=== PATIENT | male | born 1990 | race Caucasian/White ===

== ENCOUNTER 2017-12-01 16:45 | Emergency (ER) | payer OTHER ==
[~2017-12-01] VITALS: Ht 180.3 cm; Wt 84.4 kg
[~2017-12-01 16:45] MED LIST: NYSTATIN100000 UN1 ORAL
[2017-12-01 17:13] VITALS: BP 115/71
[2017-12-01] MEDS ORDERED: Azithromycin 250mg tab ORAL ONE (17:30)
[2017-12-01] MEDS ORDERED: Lidocaine 1% MPF 10mg/ml 5ml INJ ONE (17:30)
--- NOTE | 2017-12-01 18:21 | Emergency Room Report ---
History of Present Illness General Chief Complaint: Male Urogenital Problems Source: Patient Present Illness HPI Patient presents with complaints of right-sided testicular pain Reports of the pain started yesterday Off-and-on Patient is sexually active with his boyfriend Usually uses condoms Denies any chest pain or shortness of breath and eyes any fevers denies any pain in the inguinal area Denies any neck pain or photophobia Allergies: Coded Allergies: NO KNOWN ALLERGIES (Verified Allergy, Unknown, 03/04/15) Patient History Past Medical History: see triage record Pertinent Family History: none Reviewed Nursing Documentation: PMH: Agreed; PSxH: Agreed Nursing Documentation-PMH Past Medical History: No Stated History Review of Systems All Other Systems: negative except mentioned in HPI Physical Exam Vital Signs Date Time Temp Pulse Resp B/P (MAP) Pulse Ox O2 Delivery O2 Flow Rate FiO2 12/01/17 17:02 98.6 70 16 115/71 96 Room Air 98.6 Sp02 EP Interpretation: reviewed, normal General Appearance: well appearing, no apparent distress Head: normocephalic, atraumatic Eyes: bilateral eye PERRL, bilateral eye EOMI ENT: hearing grossly normal, normal pharynx Neck: supple Respiratory: chest non-tender, lungs clear Cardiovascular #1: regular rate, rhythm, no edema Gastrointestinal: non tender, soft Genitourinary: other - Tender on the anterior aspect of the epididymal region on the right testicle Musculoskeletal: normal inspection Neurologic: alert, oriented x3 Skin: normal color, no rash Lymphatic: no adenopathy Medical Decision Making Diagnostic Impression: Primary Impression: Acute epididymitis ER Course Patient's clinical history and symptoms are consistent with epididymitis given the patient's pain however ultrasound was obtained to rule out any torsion Patient was treated symptomatically for other causes of epididymitis Discussion was made regarding the need for close STD clinic follow-up And patient will return with any changes CT/MRI/US Diagnostic Results CT/MRI/US Diagnostic Results : Impression testicular ultrasound:hydrocele with evidence of epididymitis no torsion Last Vital Signs Date Time Temp Pulse Resp B/P (MAP) Pulse Ox O2 Delivery O2 Flow Rate FiO2 12/01/17 17:13 98.6 16 115/71 96 Room Air 98.6 12/01/17 17:02 70 Status: improved Disposition: HOME, SELF-CARE Condition: Improved Scripts Ibuprofen* (MOTRIN*) 600 Mg Tablet 600 MG ORAL Q8H PRN for For Pain, #20 TAB 0 Refills Prov: Linette Jewell DO 12/01/17 Doxycycline Monohydrate* (DOXYCYCLINE MONOHYDRATE*) 100 Mg Capsule 100 MG ORAL Q12H, #10 CAP 0 Refills Prov: Linette Jewell DO 12/01/17 Referrals: CRISTY SILVA,REFERRING (PCP) Additional Instructions: Patient is provided with the discharge instructions notified to follow up with primary doctor in the next 2-3 days otherwise return to the er with any worsening symptoms. Please note that this report is being documented using [employer] technology. This can lead to erroneous entry secondary to incorrect interpretation by the dictating instrument. Linette Jewell DO Dec 01, 2017 18:20
[2017-12-01] MEDS ORDERED: DOXYCYCLINE MO100 MG ORAL (18:29)
[2017-12-01] MEDS ORDERED: IBUPROFEN600 MG ORAL (18:29)
--- NOTE | 2017-12-01 18:38 | Diagnostic Imaging Report ---
EXAM: US Scrotum CLINICAL HISTORY: PAIN TECHNIQUE: Real-time ultrasound of the scrotum with color Doppler and image documentation. COMPARISON: FINDINGS: Right testicle: 3.8 x 2.2 x 3.7 cm. No lesion or torsion. Left testicle: 4.1 x 2.2 x 3.3 cm. No lesion or torsion. Epididymides: Unremarkable. Scrotum: Small hydroceles IMPRESSION: No intratesticular mass lesion or torsion.
[2017-12-01 18:40] VITALS: BP 121/86
[2017-12-02] MEDS ORDERED: ZOFRAN4 M1 ORAL (20:42)
[2017-12-02] MEDS ORDERED: ACETAMINOPHEN-1 EAC1 ORAL (20:42)
== END 2017-12-01 18:41 | disposition home or self-care (01) ==
LOC: EMR 17:57
DX: N45.1 Epididymitis (principal); N43.3 Hydrocele, unspecified
CPT/HCPCS: 76870; 96372; 99284; J0696; Q0144

== ENCOUNTER 2017-12-02 19:24 | Emergency (ER) | payer OTHER ==
[~2017-12-02] VITALS: Ht 180.3 cm; Wt 83.9 kg
[~2017-12-02 19:24] MED LIST changes: +DOXYCYCLINE MO100 MG ORAL; +IBUPROFEN600 MG ORAL
--- NOTE | 2017-12-02 19:38 | Emergency Room Report ---
History of Present Illness General Chief Complaint: Nausea, Vomiting, and Diarrhea Source: Patient Present Illness HPI Patient was here yesterday seen by myself Was treated empirically for epididymitis Returns today with complaints of epigastric discomfort nausea vomiting and diarrhea Denies any chest pain or short of breath and eyes any fevers Denies any back or flank pain Discomfort is mainly epigastric and burning in sensation Allergies: Coded Allergies: NO KNOWN ALLERGIES (Verified Allergy, Unknown, 03/04/15) Patient History Past Medical History: see triage record Pertinent Family History: none Reviewed Nursing Documentation: PMH: Agreed; PSxH: Agreed Nursing Documentation-PMH Past Medical History: No History, Except For History Of Psychiatric Problem: Yes - Generalized anxiety & depression Review of Systems All Other Systems: negative except mentioned in HPI Physical Exam Vital Signs Date Time Temp Pulse Resp B/P (MAP) Pulse Ox O2 Delivery O2 Flow Rate FiO2 12/02/17 19:29 99.2 110 20 91/57 97 Room Air 99.1 Sp02 EP Interpretation: reviewed, normal General Appearance: well appearing, no apparent distress Head: normocephalic, atraumatic Eyes: bilateral eye PERRL, bilateral eye EOMI ENT: hearing grossly normal, normal pharynx, TMs + canals normal, uvula midline Neck: full range of motion, supple, no meningismus, no bony tend Respiratory: lungs clear, normal breath sounds, no rhonchi, no respiratory distress, no retraction, no accessory muscle use Cardiovascular #1: normal peripheral pulses, regular rate, rhythm, no edema, no gallop, no JVD, no murmur Gastrointestinal: normal bowel sounds, non tender, soft, no mass, no organomegaly, non-distended, no guarding, no hernia, no pulsatile mass, no rebound Genitourinary: no CVA tenderness Musculoskeletal: normal inspection Neurologic: oriented x3, responsive, associate entertainment editor III-XII nml as tested, motor strength/ tone normal, sensory intact Psychiatric: mood/affect normal Skin: normal color, no rash, warm/dry, palpation normal Lymphatic: normal inspection, no adenopathy Medical Decision Making Diagnostic Impression: Primary Impression: Nausea, vomiting, and diarrhea ER Course Given the patient's history and presentation Multiple differentials were considered gastrointestinal, cholecystitis, pancreatitis, medication reaction as well Patient's blood work reveals mildly elevated kidney function in line with dehydration patient had further IV hydration performed Nausea medication along with pain medication Clinically appears improved and feels better Hemodynamically remained stable patient is also on PEP regimen At this time patient stable for outpatient follow-up requires repeat evaluation And will return with any concerns Labs Test 12/02/17 19:50 White Blood Count 8.7 K/UL (4.8-10.8) Red Blood Count 5.60 M/UL (4.70-6.10) Hemoglobin 16.9 G/DL (14.2-18.0) Hematocrit 50.8 % (42.0-52.0) Mean Corpuscular Volume 91 FL (80-99) Mean Corpuscular Hemoglobin 30.2 PG (27.0-31.0) Mean Corpuscular Hemoglobin Concent 33.3 G/DL (32.0-36.0) Red Cell Distribution Width 11.1 % (11.6-14.8) Platelet Count 219 K/UL (150-450) Mean Platelet Volume 6.3 FL (6.5-10.1) Neutrophils (%) (Auto) % (45.0-75.0) Lymphocytes (%) (Auto) % (20.0-45.0) Monocytes (%) (Auto) % (1.0-10.0) Eosinophils (%) (Auto) % (0.0-3.0) Basophils (%) (Auto) % (0.0-2.0) Differential Total Cells Counted 100 Neutrophils % (Manual) 84 % (45-75) Lymphocytes % (Manual) 5 % (20-45) Monocytes % (Manual) 3 % (1-10) Eosinophils % (Manual) 0 % (0-3) Basophils % (Manual) 0 % (0-2) Band Neutrophils 8 % (0-8) Platelet Estimate Adequate Platelet Morphology Normal Red Blood Cell Morphology Normal Sodium Level 137 MMOL/L (136-145) Potassium Level 4.3 MMOL/L (3.5-5.1) Chloride Level 103 MMOL/L (98-107) Carbon Dioxide Level 24 MMOL/L (21-32) Anion Gap 11 mmol/L (5-15) Blood Urea Nitrogen 26 mg/dL (7-18) Creatinine 1.5 MG/DL (0.55-1.30) Estimat Glomerular Filtration Rate 55.3 mL/min (>60) Glucose Level 124 MG/DL (74-106) Calcium Level 9.2 MG/DL (8.5-10.1) Total Bilirubin 0.7 MG/DL (0.2-1.0) Aspartate Amino Transf (AST/SGOT) 34 U/L (15-37) Alanine Aminotransferase (ALT/SGPT) 38 U/L (12-78) Alkaline Phosphatase 52 U/L (46-116) Total Protein 8.1 G/DL (6.4-8.2) Albumin 4.5 G/DL (3.4-5.0) Globulin 3.6 g/dL Albumin/Globulin Ratio 1.2 (1.0-2.7) Lipase 108 U/L (73-393) Last Vital Signs Date Time Temp Pulse Resp B/P (MAP) Pulse Ox O2 Delivery O2 Flow Rate FiO2 12/02/17 19:29 99.2 110 20 91/57 97 Room Air 99.1 Status: improved Disposition: HOME, SELF-CARE Condition: Improved Scripts Acetaminophen With Codeine (T#3) (TYLENOL #3 TAB*) Y Tab 1 TAB ORAL Q8H PRN for For Pain, #7 TAB Prov: Linette Jewell DO 12/02/17 Ondansetron (Zofran) 4 Mg Tablet 4 MG ORAL Q8HR PRN for Nausea & Vomiting, #12 TAB Prov: Linette Jewell DO 12/02/17 Additional Instructions: Patient is provided with the discharge instructions notified to follow up with primary doctor in the next 2-3 days otherwise return to the er with any worsening symptoms. Please note that this report is being documented using [employer] technology. This can lead to erroneous entry secondary to incorrect interpretation by the dictating instrument. Linette Jewell DO Dec 02, 2017 19:38
[2017-12-02 20:10] LABS: HEMATOCRIT 50.8 % (42.0-52.0); HEMOGLOBIN 16.9 G/DL (14.2-18.0); MEAN CORPUSCULAR VOLUME 91 FL (80-99); PLATELET COUNT 219 K/UL (150-450); RED CELL DISTRIBUTION WIDTH 11.1 % (11.6-14.8); WHITE BLOOD COUNT 8.7 K/UL (4.8-10.8)
[2017-12-02 20:15] LABS: ANION GAP 11 mmol/L (5-15); BLOOD UREA NITROGEN 26 mg/dL (7-18); CALCIUM 9.2 MG/DL (8.5-10.1); CARBON DIOXIDE 24 MMOL/L (21-32); CHLORIDE 103 MMOL/L (98-107); CREATININE 1.5 MG/DL (0.55-1.30); POTASSIUM 4.3 MMOL/L (3.5-5.1); SODIUM 137 MMOL/L (136-145)
[2017-12-02 20:20] LABS: ALANINE AMINOTRANSFERASE 38 U/L (12-78); ALBUMIN 4.5 G/DL (3.4-5.0); ALBUMIN/GLOBULIN RATIO 1.2 (1.0-2.7); ALKALINE PHOSPHATASE 52 U/L (46-116); ASPARTATE AMINO TRANSFERASE 34 U/L (15-37); BILIRUBIN,TOTAL 0.7 MG/DL (0.2-1.0)
[2017-12-02] MEDS ORDERED: Ketorolac 30mg Inj IV ONE (20:30)
[2017-12-02] MEDS ORDERED: ZOFRAN4 M1 ORAL (20:42)
[2017-12-02] MEDS ORDERED: ACETAMINOPHEN-1 EAC1 ORAL (20:42)
[2017-12-02 20:45] VITALS: BP 100/58
[2017-12-02] MEDS ORDERED: Tylenol #3 tab (300mg/30mg) ORAL ONE (20:45)
== END 2017-12-02 20:45 | disposition home or self-care (01) ==
LOC: EMR 19:53
DX: R11.2 Nausea with vomiting, unspecified (principal); R19.7 Diarrhea, unspecified; R10.13 Epigastric pain; F41.9 Anxiety disorder, unspecified; F32.9 Major depressive disorder, single episode, unspecified
CPT/HCPCS: 36415; 80053; 83690; 85007; 85025; 96360; 96374; 96375; 99284; J1885; J2405